=== PATIENT | female | born 1990 | race Asian ===

== ENCOUNTER 2019-12-10 10:45 | Emergency (ER) | payer OTHER ==
[2019-12-10] MEDS ORDERED: SODIUM CHLORIDE 1,000 ML IV STA (10:58)
[2019-12-10] MEDS ORDERED: KETOROLAC TROMETHAMINE 30 MG/1 ML VIAL IVPUSH ONE (10:58)
--- NOTE | 2019-12-10 11:03 | PDOC ---
History of Present Illness - General Chief Complaint: Pain Stated Complaint: LEFT FLANK PAIN Time Seen by Provider: 12/10/19 10:47 History Source: Patient Exam Limitations: No Limitations - History of Present Illness Travel History: No Initial Comments: 12/10/19 10:59 29 y/o female with left flank pain for 3 days. No fever or chills. Hx of UTI in the past. Denies dysuria or blood in urine. OTC medications not helping. Denies , fall or trauma. No N/V/d/C. Timing/Duration: reports: constant Pain Radiation: reports: no radiation Past History - Past Medical History Allergies/Adverse Reactions: Allergies Allergy/AdvReac Type Severity Reaction Status Date / Time No Known Allergies Allergy Verified 12/10/19 10:46 Home Medications: Ambulatory Orders Prenat 115/Iron Fum/Folic/Dss [ 19 Tablet] 1 each PO DAILY 12/10/19 Review of Systems - Review of Systems Able to Perform ROS?: Yes Is the patient limited Moldovan proficient: No Constitutional: No: Chills, Fever Respiratory: No: Cough, Shortness of Breath Cardiac (ROS): No: Chest Pain ABD/GI: No: Nausea, Vomiting : No: Burning, Hematuria Musculoskeletal: No: Back Pain Integumentary: No: Rash All Other Systems: Reviewed and Negative *Physical Exam - Physical Exam General Appearance: Yes: Nourished, Appropriately Dressed. No: Apparent Distress HEENT: positive: EOMI, GHADA, Normal ENT Inspection, Normal Voice, Symmetrical, Pharynx Normal Neck: positive: Trachea midline, Normal Thyroid, Supple. negative: Tender, Rigid Respiratory/Chest: positive: Lungs Clear, Normal Breath Sounds. negative: Chest Tender, Respiratory Distress Cardiovascular: positive: Regular Rhythm, Regular Rate, S1, S2. negative: Edema , JVD, Murmur Vascular Pulses: Femoral (R): 4+, Femoral (L): 4+, Carotid (R): 4+, Carotid (L) : 4+, Dorsalis-Pedis (R): 4+, Doralis-Pedis (L): 4+ Gastrointestinal/Abdominal: positive: Normal Bowel Sounds, Flat, Soft (No RLQ, LLQ tenderness, no RUQ or LUQ tenderness +BS). negative: Tender, Organomegaly, Pulsatile Mass Lymphatic: negative: Adenopathy, Tenderness, Other Musculoskeletal: positive: Normal Inspection. negative: CVA Tenderness Extremity: positive: Normal Capillary Refill, Normal Inspection, Normal Range of Motion Integumentary: positive: Normal Color, Dry, Warm Neurologic: positive: quill buncher and sorter II-XII NML intact, Fully Oriented, Alert, Normal Mood/ Affect, Normal Response, Motor Strength 03/12 ED Progress Note - Progress Note Progress Note: 12/10/19 11:02 29 y/o female with left flank pain no hx of kidney stone Will give IVF and Toradol Obtain urine and CT Pt is in agreement with plan 12/10/19 13:40 Pt is feeling much better, CT ? ureter fullness Continue Motrin If worsen return to ER Discharge - Discharge Information Problems reviewed: Yes Clinical Impression/Diagnosis: Flank pain Condition: Good Disposition: HOME - Admission No - Follow up/Referral - Patient Discharge Instructions Patient Printed Discharge Instructions: DI for Flank Pain Additional Instructions: Fluids, rest, Motrin If worsen return to ER - Post Discharge Activity
[2019-12-10 11:11] VITALS: BP 120/78; PULSE 79; TEMP 98.8; BMI 19.5
[2019-12-10] MEDS ORDERED: KETOROLAC TROMETHAMINE 30 MG/1 ML VIAL ONE (11:37)
== END 2019-12-10 13:49 | disposition home or self-care (01) ==
LOC: FER 10:45
PROC: 3E0333Z Introduction of Anti-inflammatory into Peripheral Vein, Percutaneous Approach (ICD-10-PCS; principal; 2019-12-10)
DX: R10.32 Left lower quadrant pain (principal)
CPT/HCPCS: 74176-TC; 81003; 84703; 99282-25; J7030